=== PATIENT | male | born 1955 | race Caucasian/White ===

== ENCOUNTER 2017-01-25 13:49 | Emergency (ER) | payer SELFPAY ==
[~2017-01-25] VITALS: Ht 167.6 cm; Wt 70.0 kg
[2017-01-25 14:21] VITALS: BP 141/85; PULSE 65; RESP 17; TEMP 98.4; O2SAT 98
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
--- NOTE | 2017-01-25 15:17 | RADRPT ---
EXAM DATE/TIME: 01/25/2017 14:46 [facility] COMPARISON: No previous studies available for comparison. INDICATIONS : Right hand pain MEDICAL HISTORY : None. SURGICAL HISTORY : None. ENCOUNTER: Initial ACUITY: 1 day PAIN SCORE: 6/10 LOCATION: Right hand FINDINGS: No fracture or subluxation seen of the right hand. Radiographically appearance of the soft tissues wi thin normal limits. 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 CONCLUSION: There mild degenerative changes. Otherwise normal radiographic appearance of the right hand. Tyler Pollard MD on January 25, 2017 at 15:14 Board Certified Radiologist. This report was verified electronically.
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
--- NOTE | 2017-01-25 15:23 | PD ---
Physical Exam Date Seen by Provider: Jan 25, 2017 Time Seen by Provider: 15:21 Data Data Last Documented VS Vital Signs Date Time Temp Pulse Resp B/P (MAP) Pulse Ox O2 Delivery O2 Flow Rate FiO2 01/25/17 14:21 98.4 65 17 141/85 (103) 98 Room Air Orders Orders Chest, Single Ap (01/25/17 14:17) Ct Brain W/O Iv Contrast(Rout) (01/25/17 14:17) Ct Cerv Spine W/O Contrast (01/25/17 14:17) Hand, Complete ([id number]) (01/25/17 ) ^ Splint (01/25/17 15:18) MDM Medical Record Reviewed: Yes Supervised Visit with CHIQUITA: No Procedures Procedure Narrative LACERATION LOCATION: Above left eyebrow LENGTH: 3 cm NUMBER OF STITCHES/RICHARD: 6 simple interrupted, 2 buried REPAIR: The area of the laceration was prepped with Betadine and sterilely draped. The laceration was infiltrated with lidocaine. The wound was copiously irrigated and explored without evidence of foreign body, tendon injury or neurovascular injury. The wound was closed using 6-0 Prolene and 5-0 Vicryl. This was a double layer repair. A sterile dressing was applied. The patient was advised to keep the dressing clean and dry. Patient tolerated the procedure well. Scripts No Active Prescriptions or Reported Meds Marquita Mendieta Jan 25, 2017 15:23
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
== END 2017-01-25 17:52 | disposition home or self-care (01) ==
LOC: NEPD 13:49
DX: S01.81XA Laceration without foreign body of other part of head, initial encounter (principal); S06.0X0A Concussion without loss of consciousness, initial encounter; V18.0XXA Pedal cycle driver injured in noncollision transport accident in nontraffic accident, initial encounter; Y92.410 Unspecified street and highway as the place of occurrence of the external cause
CPT/HCPCS: 12052; 70450; 71010; 72125; 73130; 99285

== ENCOUNTER 2017-02-01 12:50 | Emergency (ER) | payer SELFPAY ==
[~2017-02-01] VITALS: Ht 165.1 cm; Wt 72.0 kg
[2017-02-01 12:53] VITALS: BP 139/89; PULSE 78; RESP 12; TEMP 98.2; O2SAT 99
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
== END 2017-02-01 13:47 | disposition home or self-care (01) ==
LOC: NEPK 12:50
DX: Z48.02 Encounter for removal of sutures (principal)
CPT/HCPCS: 99281